=== PATIENT | female | born 1960 | race Caucasian/White ===

== ENCOUNTER 2024-12-09 11:36 | Outpatient (CLI) | payer MEDICARE, SELFPAY ==
[2024-12-10 20:15] LABS: HPV Source Cervix
== END 2024-12-09 11:37 | disposition home or self-care (01) ==
PROVIDERS: PCP Internal Medicine; Visit Provider Obstetrics & Gynecology
DX: Z12.4 Encounter for screening for malignant neoplasm of cervix (principal); Z11.51 Encounter for screening for human papillomavirus (HPV)
CPT/HCPCS: 87624; 87625; 88141; 88142

== ENCOUNTER 2025-04-16 09:45 | Outpatient (CLI) | payer MEDICARE, SELFPAY | END 2025-04-16 09:46 | disposition home or self-care (01) | LOC: NFLDREF 04-21 21:55 | PROVIDERS: PCP Internal Medicine; Referring Provider Internal Medicine; Visit Provider Internal Medicine | DX: I10 Essential (primary) hypertension (principal); Z13.6 Encounter for screening for cardiovascular disorders | CPT/HCPCS: 80053; 80061 ==